=== PATIENT | female | born 1985 | race Caucasian/White ===

== ENCOUNTER → 2018-09-27 | Outpatient (CLI) | payer MEDICAID ==
[2018-09-27 23:53] LABS: Anion Gap 7.4 mmol/L (4.00-12.00); Carbon Dioxide 25.6 mmol/L (21.6-31.8); Potassium 3.9 mmol/L (3.5-5.5)
[2018-09-28 00:11] LABS: T4, Free (Free Thyroxine) 0.4 ng/dL (0.80-1.80)
== END | disposition home or self-care (01) ==
LOC: LABWHC1 17:28
PROVIDERS: ATTEND Internal Medicine
DX: L68.0 Hirsutism (principal)
CPT/HCPCS: 36415; 80051; 84402; 84439; 84443; 84481

== ENCOUNTER → 2019-11-16 | Outpatient (CLI) | payer MEDICAID ==
[2019-11-16 19:00] LABS: T4, Free (Free Thyroxine) 0.9 ng/dL (0.80-1.80)
== END | disposition home or self-care (01) ==
LOC: LABWHC1 14:22
PROVIDERS: ATTEND Internal Medicine
DX: E03.9 Hypothyroidism, unspecified (principal)
CPT/HCPCS: 36415; 84439; 84443; 84481

== ENCOUNTER → 2020-04-10 | Outpatient (CLI) | payer MEDICAID | END | disposition home or self-care (01) | LOC: LABMAIN 15:22 | PROVIDERS: ATTEND Emergency Medicine | DX: Z09 Encounter for follow-up examination after completed treatment for conditions other than malignant neoplasm (principal); Z86.19 Personal history of other infectious and parasitic diseases | CPT/HCPCS: 36415; 86769 ==

== ENCOUNTER → 2021-05-31 | Outpatient (CLI) | payer MEDICAID, OTHER | END | disposition home or self-care (01) | LOC: LABWHC1 12:29 | PROVIDERS: ATTEND Physician Assistant | DX: Z20.822 Contact with and (suspected) exposure to COVID-19 (principal) | CPT/HCPCS: 87635 ==

== ENCOUNTER → 2021-06-20 | Outpatient (CLI) | payer OTHER | END | disposition home or self-care (01) | LOC: LABMAIN 11:05 | PROVIDERS: ATTEND Physician Assistant | DX: Z03.818 Encounter for observation for suspected exposure to other biological agents ruled out (principal); Z20.828 Contact with and (suspected) exposure to other viral communicable diseases | CPT/HCPCS: 87635 ==

== ENCOUNTER → 2021-06-29 | Outpatient (CLI) | payer OTHER | END | disposition home or self-care (01) | LOC: LABMAIN 11:37 | PROVIDERS: ATTEND Emergency Medicine | DX: Z03.818 Encounter for observation for suspected exposure to other biological agents ruled out (principal) | CPT/HCPCS: 87635 ==

== ENCOUNTER → 2021-12-27 | Outpatient (CLI) | payer BC | END | disposition home or self-care (01) | LOC: LABMAIN 09:59 | PROVIDERS: ATTEND Physician Assistant | DX: Z00.00 Encounter for general adult medical examination without abnormal findings (principal) | CPT/HCPCS: 84702 ==

== ENCOUNTER → 2023-10-07 | Outpatient (CLI) | payer OTHER ==
--- NOTE | 2023-10-11 08:47 | MM ---
Reason for Exam: Screening (asymptomatic). Baseline mammogram. Patient History: Menarche at age 14. First Full-Term at age 32. Late child-bearing (after 30). Premenopausal. Risk Values: Cherrie 5 year model risk: 0.5%. NCI Lifetime model risk: 13.8%. Prior Study Comparison: Patient's first Mammogram. Tissue Density: The breasts are heterogeneously dense, which may obscure small masses. Findings: Analyzed By CAD. There are grouped calcifications upper outer quadrant right breast which are indeterminate. No suspicious mass or architectural distortion. Overall Assessment: Incomplete: need additional imaging evaluation, BI-RAD 0 Management: Diagnostic Mammogram of the right breast. . Patient should continue monthly self-breast exams. A clinical breast exam by your physician is recommended on an annual basis. This exam should not preclude additional follow-up of suspicious palpable abnormalities. Note on Cherrie scores and lifetime risk: 1. A Cherrie score greater than 3% is considered moderate risk. If this is the case, consider specialist referral to assess eligibility for a risk reducing agent. 2. If overall lifetime risk for the development of breast cancer is 20% or higher, the patient may qualify for future screening with alternating mammogram and breast MRI. Electronically signed and approved by: Jordan Samano M.D. Radiologis
== END | disposition home or self-care (01) ==
LOC: RADMAMWWP 13:15
PROVIDERS: ATTEND Obstetrics & Gynecology
DX: Z12.31 Encounter for screening mammogram for malignant neoplasm of breast (principal)
CPT/HCPCS: 77063; 77067

== ENCOUNTER → 2023-10-13 | Outpatient (CLI) | payer OTHER ==
--- NOTE | 2023-10-13 13:43 | MM ---
Reason for Exam: Additional evaluation requested from abnormal screening. Last screening mammogram was performed less than 1 month ago. Patient History: Menarche at age 14. First Full-Term at age 32. Late child-bearing (after 30). Premenopausal. Risk Values: Cherrie 5 year model risk: 0.5%. NCI Lifetime model risk: 13.8%. Tissue Density: Right: There are scattered areas of fibroglandular density. Findings: Analyzed By CAD. Double marker along the right upper-outer quadrant. Underlying, on the spot 3-D CC view, there is a 7 mm irregular asymmetric density do not well seen on the MLO or lateral views. Extensive calcifications are present throughout the upper outer quadrant spanning from front to back. More grouped heterogeneous calcifications closer to the palpable site. Other calcifications are scattered in the upper outer quadrant, many punctate and indeterminate. Overall Assessment: Incomplete: need additional imaging evaluation, BI-RAD 0 Management: Diagnostic Breast Ultrasound of the right breast. Electronically signed and approved by: Carlee Montana M.D. Radiologist
--- NOTE | 2023-10-13 14:05 | USB ---
Reason for Exam: Clinical finding. Patient History: Menarche at age 14. First Full-Term at age 32. Late child-bearing (after 30). Premenopausal. Risk Values: Cherrie 5 year model risk: 0.5%. NCI Lifetime model risk: 13.8%. Technique: Method: Whole Breast Handheld. Doppler: Color. Patient Position: LPO. Prior Study Comparison: 10/07/2023 Bilateral MG 3D screening mammo w/cad, [facility]. Findings: The whole breast of the right breast, the axilla of the right breast and the retroareolar of the right breast were scanned. A complete US of all four quadrants of the breast, axilla, and retro-areolar region were reviewed. There is an irregular shadowing mass with echogenic halo measuring 9 x 7 x 6 mm. This is located at the 10:00 position, 6 cm from the nipple at the patient's palpable site. Tissue sampling recommended. A couple borderline to mildly thickened lymph nodes in the axilla with cortical thickness up to 6 mm is noted. Tissue sampling of one of these thickened lymph nodes is recommended. Otherwise, there is some mild retroareolar duct ectasia with debris noted. No other solid or cystic lesion. Overall Assessment: Suspicious, BI-RAD 4 Management: Ultrasound Core Biopsy of the right breast. Stereotactic Core Biopsy of the right breast. 2 separate ultrasound-guided biopsy. On a separate day, additional two site stereotactic biopsy for far anterior and far posterior calcifications. Results were given to the patient verbally at the time of exam. Electronically signed and approved by: Carlee Montana M.D. Radiologist
== END | disposition home or self-care (01) ==
LOC: RADMAMWWP 12:53
PROVIDERS: ATTEND Obstetrics & Gynecology
DX: R92.8 Other abnormal and inconclusive findings on diagnostic imaging of breast (principal); R92.321 Mammographic fibroglandular density, right breast
CPT/HCPCS: 77061; 77065

== ENCOUNTER → 2023-10-25 | Day surgery (SDC) | payer OTHER ==
[~2023-10-25] MED LIST: ALPRAZolam 0.25 MG TAB PO PRN
[2023-10-25] MEDS: ALPRAZolam 0.5 MG TAB PO PRN (07:52)
[2023-10-25 08:02] VITALS: RESP 16
[2023-10-25 09:55] VITALS: BP 109/74; PULSE 66; TEMP 98.3
--- NOTE | 2023-10-29 14:33 | MM ---
Risk Values: Cherrie 5 year model risk: 0.5%. NCI Lifetime model risk: 13.8%. Prior Study Comparison: 10/07/2023 Bilateral MG 3D screening mammo w/cad, [facility]. 10/13/2023 Right MG 3D work up w/cad RT, [facility]. Pathology Description: Marker Left Behind. Specimen Radiograph. Approach: CC FA Needle Type: Eviva Cores: 6 Skin Nicks: 1 Gauge: 9 Pathology Description: Marker Left Behind. Specimen Radiograph. Approach: CC FA Needle Type: Eviva Cores: 6 Skin Nicks: 1 Gauge: 9 The procedure of stereotactic guided core biopsy was explained to the patient. Benefits, alternatives, and risks were discussed. An informed consent was then obtained. The shortness pathway for biopsy was chosen. Shortness pathway was superior approach. Dr. Acharya performed targeting and procedure.. A vacuum assisted biopsy gun was used to obtain 6 core samples at each of sales representative canvas products anterior and posterior locations. Additional calcifications remain, evaluate in relation to pathology results. The patient tolerated the procedure well without any immediate complication. The patient was kept in the radiology department for short stay after the procedure and then discharged home in stable condition. Targeted calcifications are identified in both specimen mammograms. Post biopsy mammogram shows the clip to appear in satisfactory position relative to the targeted area of concern on the preprocedure images. Impression: 1. Successful stereotactic core biopsy 2 locations anterior and posterior calcifications within the lateral right breast. Pathology Results: Result: Malignant, Invasive ductal carcinoma. Pathology and radiology were reviewed. Findings are concordant. A. 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 See Surgical Pathology Cancer Case Summary and Comment. B. RIGHT BREAST, SITE B, ANTERIOR, NEEDLE CORE BIOPSY: Invasive moderately differentiated ductal carcinoma (Grade 2). See Surgical Pathology Cancer Case Summary and Comment. Overall Assessment: Malignant Management: Surgical Consultation of the right breast. Electronically signed and approved by: Willian Acharya D.O. Radiologis
== END ==
LOC: RADMAMWWP 07:40
PROVIDERS: ATTEND Surgery
DX: D05.11 Intraductal carcinoma in situ of right breast (principal); R92.8 Other abnormal and inconclusive findings on diagnostic imaging of breast
CPT/HCPCS: 88305; 88342; 88341; 19081; 19082; A4648; J2001

== ENCOUNTER → 2023-10-29 | Day surgery (SDC) | payer OTHER ==
--- NOTE | 2023-12-08 09:28 | USB ---
Prior Study Comparison: 10/07/2023 Bilateral MG 3D screening mammo w/cad, [facility]. 10/13/2023 Right US breast workup limited RT, [facility]. 10/13/2023 Right MG 3D work up w/cad RT, [facility]. Pathology Description: Location: axilla. Marker Left Behind. Needle Type: Mammotome Cores: 3 Gauge: 13 The procedure of ultrasound guided core biopsy was explained to the patient. Benefits, alternatives, and risks were discussed. An informed consent was then obtained. The right axillary lymph node with mild, uniformly thickened cortex is identified and targeted for biopsy. The patient was placed in supine positioning for imaging and for the procedure. The overlying skin was prepped and draped in usual sterile fashion. Lidocaine was used as anesthetic into the skin followed by lidocaine/epinephrine into the subcutaneous tissue up to area of concern in the right axilla. Under ultrasound guidance, a 13-gauge vacuum-assisted mammotome Elite biopsy gun was used to obtain 3 core samples. Following this, a HydroMark butterfly clip was left in lesion. The patient tolerated the procedure well without any immediate complication. The patient was kept in the radiology department for short stay after the procedure and then discharged home in stable condition. Postprocedure mammogram given axillary position. IMPRESSION: Successful, uncomplicated ultrasound guided core biopsy of an equivocal right axillary lymph node, possibly reactive but in the setting of biopsy-proven right breast cancer. Full pathology results to follow. Pathology Results: Result: Benign. Pathology and radiology were reviewed. Findings are concordant. RIGHT AXILLA, ULTRASOUND GUIDED CORE BIOPSY: Core fragments of reactive lymphoid tissue (see note). Notes It is noted the patient has a prior diagnosis of right breast microinvasive ductal carcinoma and invasive moderately differentiated ductal carcinoma (see prior case [id number] for full details). In order to further assess for metastatic carcinoma, CK7 immunostaining is performed with appropriate control and is negative for metastatic carcinoma within the current case. Overall Assessment: Benign Management: Diagnostic Breast Ultrasound of the right breast in 6 months. Electronically signed and approved by: Carlee Montana M.D. Radiologist
== END ==
LOC: RADUSWWP 07:47
PROVIDERS: ATTEND Surgery
DX: R92.8 Other abnormal and inconclusive findings on diagnostic imaging of breast
CPT/HCPCS: 19083; A4648; 88305; 88342

== ENCOUNTER → 2024-01-10 | Outpatient (CLI) | payer OTHER ==
--- NOTE | 2024-01-10 10:09 | CT ---
EXAMINATION TYPE: CT ChestAbdPelvis w con CT DLP: 1421 mGycm, Automated exposure control for dose reduction was used. DATE OF EXAM: 01/10/2024 9:09 AM COMPARISON: None. CLINICAL INDICATION: Female, 38 years old with history of C50.411 BREAST CANCER; [facility], BREAST CA Technique: CT ChestAbdPelvis w con; Multiple axial images were obtained. Two-dimensional coronal and sagittal reconstructions were obtained. Contrast used:100 mL of Isovue 300 with IV Contrast, Oral contrast used: with Oral Contrast Findings: CHEST: LUNGS/ PLEURA: No focal consolidation, pneumothorax or pleural effusion. AIRWAY: Patent and unremarkable. HEART: Size within normal limits. MEDIASTINUM: No gross evidence of adenopathy. VASCULATURE: No aortic aneurysm. MUSCULOSKELETAL: No acute osseous abnormalities. SOFT TISSUES/LYMPH NODES: Unremarkable. Bilateral breast implants appear intact. Left inferior latera l breast nodule measuring 7 mm series 3 image 50 this may be around 5:00 is difficult to evaluate. LOWER NECK: No significant findings. ABDOMEN: ABDOMEN LIVER: Unremarkable GALLBLADDER AND BILE DUCTS: Unremarkable. PANCREAS: Unremarkable. SPLEEN: Unremarkable. ADRENAL GLANDS: Unremarkable. KIDNEYS AND URETERS: No evidence of hydronephrosis or renal calculus. The ureters are unremarkable. PELVIS BLADDER: Unremarkable REPRODUCTIVE: Unremarkable. ABDOMEN & PELVIS STOMACH AND BOWEL: No evidence of bowel obstruction. PERITONEUM/RETROPERITONEUM: No evidence of pneumoperitoneum or free fluid. VASCULATURE: No evidence of aortic aneurysm. MUSCULOSKELETAL: No acute osseous abnormalities LYMPH NODES: No gross evidence for lymphadenopathy. SOFT TISSUE/ABDOMINAL WALL: Unremarkable IMPRESSION: Small left soft tissue lesion in the left inferior lateral aspect of the left breast at approximately 5:00 consider further evaluation with ultrasound. Otherwise, no evidence for lymphadenopathy or susp icious lesions. [facility], , 01/10/2024 10:06 AM
--- NOTE | 2024-01-10 14:17 | NM ---
EXAMINATION TYPE: NM bone scan whole body DATE OF EXAM: 01/10/2024 COMPARISON: NONE CLINICAL INDICATION: Female, 38 years old with history of C50.411 BREAST CANCER; Delayed whole-body scanning was performed following the injection of 24.9 mCi Tc 99m MDP. Images acq uired 5.5 hours post injection. FINDINGS: No evidence for intense uptake to suggest metastatic disease to the bone. Mild degenerative uptake ab out the shoulders. IMPRESSION: No evidence for intense uptake to suggest metastatic disease to the bone. [facility], , 01/10/2024 2:14 PM
== END | disposition home or self-care (01) ==
LOC: RADNMMAIN 07:06
PROVIDERS: ATTEND Internal Medicine Hematology & Oncology
DX: C50.411 Malignant neoplasm of upper-outer quadrant of right female breast
CPT/HCPCS: 71260; 74177; 78306

== ENCOUNTER → 2024-05-01 | Outpatient (CLI) | payer OTHER | END | disposition home or self-care (01) | LOC: LABWHC1 14:05 | PROVIDERS: ATTEND Radiology Radiation Oncology | DX: C50.411 Malignant neoplasm of upper-outer quadrant of right female breast (principal); C77.3 Secondary and unspecified malignant neoplasm of axilla and upper limb lymph nodes | CPT/HCPCS: 81025 ==

== ENCOUNTER → 2024-08-16 | Outpatient (CLI) | payer OTHER ==
--- NOTE | 2024-08-16 09:02 | CT ---
EXAMINATION TYPE: CT angio chest DATE OF EXAM: 08/16/2024 COMPARISON: Prior CT January 10, 2024 CLINICAL INDICATION: Female, 39 years old with history of C50.411 MALIG NEOPLM OF UPPER-OUTER QUADRAN T OF RIGHT BREAST, SOB, history of breast cancer., TECHNIQUE: CTA scan of the thorax is performed with IV Contrast, patient injected with 60 mL of Isovue 370, pulm onary embolism protocol. MIP Images are created on CT scanner and reviewed. CT DLP: 246.9 mGycm. Automated Exposure Control for Dose Reduction was Utilized. FINDINGS: LUNGS: There are new Multifocal areas of groundglass opacity and organizing consolidation involving t he right upper and middle lobes greatest anteriorly. Left lung is clear. There is no pleural effusi on or pneumothorax seen bilaterally. The tracheobronchial tree is patent. HEART: Size within normal limits. No significant coronary artery calcifications. MEDIASTINUM: Suboptimal bolus with most dense contrast in the SVC but no convincing CT evidence for a cute pulmonary embolism. With some enhancement of the thoracic aorta without aneurysm or dissection. There are no greater than 1 cm hilar or mediastinal lymph nodes. No pericardial effusion is seen. OTHER: Bilateral breast implants are redemonstrated. Surgical clips in the right axilla are again see n. IMPRESSION: 1. Suboptimal study without acute pulmonary embolism. 2. New multifocal groundglass opacities and small areas of irregular consolidation in the right lung could reflect acute pneumonic infiltrates in appropriate clinical setting. Product of radiation treat ment related to right-sided breast cancer is more likely. Correlate clinically. [facility], , 08/16/2024 8:59 AM
== END | disposition home or self-care (01) ==
LOC: RADCTMAIN 07:52
PROVIDERS: ATTEND Internal Medicine Hematology & Oncology
DX: C50.411 Malignant neoplasm of upper-outer quadrant of right female breast (principal); J98.4 Other disorders of lung; Z98.82 Breast implant status
CPT/HCPCS: 71275; Q9967